=== PATIENT | male | born 1975 | race Caucasian/White ===

== ENCOUNTER 2016-10-19 08:00 | Inpatient (IN) | payer OTHER ==
[~2016-10-19] VITALS: Ht 182.9 cm; Wt 157.0 kg
--- NOTE | ~2016-10-19 | HP ---
PATIENT'S NAME: BEATA OG [facility] AGE: 41 Y [address] ROOM: [place] [address] LOCATION: [facility] ADMIT DATE: 11/02/2016 History & Physical DISCHARGE DATE: FAMILY PHYSICIAN: DIVINE VERONICA ATTENDING PHYSICIAN: MICHOACANO ENG DATE OF SERVICE: CHIEF COMPLAINT: Left knee pain. HISTORY OF PRESENT ILLNESS: The patient is a 41-year-old male, patient Dr. Michoacano Eng, who was admitted to the hospital today, 11/02/2016, for a left total knee arthroplasty for end- stage DJD. The patient will be followed by me for pain management and general medical care. I reviewed his preop evaluation with Dr. Michoacano Eng's notes. When I see him, he has no complaints of chest pain or shortness of breath. He has no nausea or vomiting. He says his pain control is adequate. CURRENT MEDICATIONS: Testosterone injections 200 mg IM per month. ALLERGIES: NO KNOWN DRUG ALLERGIES. PREVIOUS OPERATIONS: Status post T and A, back surgery with L4-L5 hemilaminectomy, appendectomy, knee surgery on the left, status post vasectomy. IMMUNIZATIONS: Up-to-date. SOCIAL HISTORY: Did smoke in the past, currently not smoking now. Denies drug or alcohol use. FAMILY HISTORY: Negative for problems with general anesthesia or bleeding disorder. REVIEW OF SYSTEMS: Positive for end-stage DJD, insomnia, back pain, sciatica, low testosterone level, and anxiety. Otherwise, see nurse's database form. PHYSICAL EXAMINATION: VITAL SIGNS: Blood pressure 153/78, pulse of 80, respirations 12, O2 normal PATIENT'S NAME: BEATA OG [facility] AGE: 41 Y [address] ROOM: [place] [address] LOCATION: [facility] ADMIT DATE: 11/02/2016 History & Physical DISCHARGE DATE: FAMILY PHYSICIAN: DIVINE VERONICA ATTENDING PHYSICIAN: MICHOACANO ENG on room air. He is afebrile. HEENT: Shows enlarging rings. Pupils react to light. He is wearing glasses. TMs not visualized. Posterior pharynx clear. NECK: Unremarkable. LUNGS: Clear. ABDOMEN: Benign. EXTREMITIES: Dressing, left knee. NEUROLOGIC: Cranial nerves intact. No lateralizing signs. Mental status normal postop. ASSESSMENT: 1. End-stage degenerative joint disease, left knee. 2. Status post left total knee arthroplasty today, operating surgeon Dr. Michoacano Eng. 3. Status post tonsillectomy and adenoidectomy. 4. Low testosterone level. 5. Status post back surgery with L4-L5 hemilaminectomy. 6. Status post appendectomy. 7. Status post vasectomy. 8. Status post prior knee surgery, see notes. PLAN: We will follow him as mentioned. LAZARO ALFARO MD PSYCHIATRIC TECHNICIAN/modl /[id number] D: [id number] T: [id number] HISTORY & PHYSICAL
--- NOTE | ~2016-10-19 | OR ---
PATIENT'S NAME: BEATA OG [facility] AGE: 41 Y [address] ROOM: [place] [address] LOCATION: [facility] ADMIT DATE: 11/02/2016 OR/Procedure Report DISCHARGE DATE: FAMILY PHYSICIAN: DIVINE VERONICA ATTENDING PHYSICIAN: MICHOACANO ENG SURGEON: Michoacano Eng MD RETAIL ASSISTANT MANAGER: Kilo Singh CST/MACHINE ASSEMBLER FOR PULLER OVER and Dr. Michoacano Lyod. DATE OF PROCEDURE: 11/02/2016 PRE-OP DIAGNOSIS: Degenerative joint disease of left knee. POST-OP DIAGNOSIS: Degenerative joint disease of left knee. OPERATION: Left total knee arthroplasty with computer navigation. ANESTHESIA: Spinal anesthesia plus adductor canal block plus periarticular local anesthesia (ropivacaine with epinephrine and Toradol). ESTIMATED BLOOD LOSS: Less than 10 mL. DRAIN: None. SPECIMEN: None. COMPLICATIONS: None. IMPLANT SYSTEM: [employer] Triathlon Size 6 left posterior stabilized femoral component Size 5 universal modular tibial base plate 13-mm posterior stabilized, size 5, X3 tibial polyethylene insert 32-mm oval X3 patellar component (triple pegged). INDICATIONS FOR SURGERY: Beata Og is a 41-year-old male, who presents with advanced left knee degenerative joint disease and associated severely compromised activities of daily living. The patient has decided to proceed with knee replacement after having been thoroughly counseled regarding the associated risks, benefits, and limitations. We have specifically reviewed the risks and implications of infection, deep venous thrombosis, pulmonary embolism, mortality, neurovascular complications, blood transfusion (and associated potential for disease transmission or transfusion reaction), stiffness, instability, mechanical deterioration of the components (due to wear and or loosening), and the potential need for revision. We have also emphasized the importance of active involvement and compliance with post- operative physical therapy as a means of optimizing range of motion and PATIENT'S NAME: BEATA OG [facility] AGE: 41 Y [address] ROOM: [place] [address] LOCATION: [facility] ADMIT DATE: 11/02/2016 OR/Procedure Report DISCHARGE DATE: FAMILY PHYSICIAN: DIVINE VERONICA ATTENDING PHYSICIAN: MICHOACANO ENG functional recovery. Informed consent has been granted. DESCRIPTION OF PROCEDURE: The patient was positioned supine after administration of anesthesia and prophylactic antibiotics. A well-padded pneumatic tourniquet was placed around the left proximal thigh, and the left lower extremity was prepped and draped with vigilant sterile technique. The patient's name as well as the intended operative side and procedure were confirmed with a verbal time-out involving myself, the circulating nurse, the scrub nurse, and the anesthesiologist. Examination under anesthesia demonstrated no active skin lesions or masses. There was a well-healed transverse arthrotomy scar at the medial joint line. There was a very long serpiginous curved linear anterolateral arthrotomy scar. This was utilized to approach the knee in lieu of a standard midline arthrotomy scar (due to the fact that the skin bridge between a midline arthrotomy scar and the pre-existing anterolateral scar would have been too narrow). There was a moderate effusion. There was no erythema. There was no abnormal warmth. There were multiple inferomedial and inferolateral arthroscopy portal scars. Range of motion under anesthesia was from 5 degrees of hyperextension to 130 degrees of flexion. There was no ligamentous insufficiency. The left lower extremity was elevated and exsanguinated with an Esmarch wrap, and the pneumatic tourniquet was inflated to 300 mmHg. The knee was approached through a longitudinal midline incision. A medial parapatellar arthrotomy was performed and the patella was everted. Examination of the joint space demonstrated a large amount of benign-appearing translucent synovial fluid. There were no loose bodies. There was no synovitis. Nonresorbable suture material was encountered in the medial retinaculum. Care was taken to raise the anterior skin flap in a full-thickness fashion, and minimize dissection any further medial than where the arthrotomy was performed. There was extensive fibrosis of the infrapatellar fat pad. There was deformity of the tibial tubercle and decreased mobility of the extensor mechanism consistent with the patient's previous tibial tubercle osteotomy. The previous anteromedialization of the tibial tubercle rendered exposure of the tibia significantly more complex and time consuming compared to a standard total knee arthroplasty. The cruciate ligaments were intact. There was a 1 x 2 cm region of full-thickness articular cartilage loss at the medial margin of the medial tibial plateau. There were intermixed grade 3 and grade 4 degenerative changes involving 75% of the medial femoral condyle. There were small osteophytes at the medial and lateral femoral condyles. There was a 1 x 1-1/2 cm region of full-thickness articular cartilage loss at the central aspect of the femoral trochlea. There was a 1-cm diameter region of full- thickness articular cartilage loss, with extensive surrounding full-thickness PATIENT'S NAME: BEATA OG [facility] AGE: 41 Y [address] ROOM: [address] [address] LOCATION: [facility] ADMIT DATE: 11/02/2016 OR/Procedure Report DISCHARGE DATE: FAMILY PHYSICIAN: DIVINE VERONICA ATTENDING PHYSICIAN: MICHOACANO ENG fissuring of the articular cartilage at the patella. There was a 1 x 2 cm diameter region of full-thickness articular cartilage loss at the lateral femoral condyle. There was a 1-cm diameter region of full-thickness articular cartilage loss at the posterior aspect of the lateral tibial plateau. There was complex degenerative tearing of the remnant of the medial meniscus. Remnants of the menisci and cruciate ligaments were excised. The [employer] computer navigation femoral tracker was pinned in place at the distal aspect of the femoral trochlea. Absence of motion between the femur and the tracking device was confirmed manually and visually. Femoral osseous landmarks were obtained in order to calibrate the computer navigation system. Landmarks included the center of rotation of the ipsilateral hip, the center-point of the distal femur, the femoral AP axis, 57 points on the medial femoral condyle articular surface, and 57 points on the lateral femoral condyle articular surface. The [employer] computer navigation system was subsequently utilized to position the distal femoral resection block such that the distal femoral resection was performed perfectly perpendicular to the femoral mechanical axis. The distal femoral resection was performed with a [employer] oscillating saw. The [employer] computer navigation tibial tracker was pinned in place at the anterior aspect of the tibial plateau. Absence of motion between the tibia and the tracking device was confirmed manually and visually. Tibial osseous landmarks were obtained in order to calibrate the computer navigation system. Landmarks included the center-point of the tibial plateau, the AP tibial axis, 57 points on the medial tibial plateau articular surface, 57 points on the lateral tibial plateau articular surface, the medial malleolus, and the lateral malleolus. The [employer] computer navigation system was subsequently utilized to position the proximal tibial resection block such that the proximal tibial resection was performed perfectly perpendicular to the tibial mechanical axis. The proximal tibial resection was performed with a [employer] oscillating saw. Perpendicularity of the tibial resection with respect to the tibial shaft axis was reconfirmed by inserting a spacer- block attached to an extramedullary guide eli. External rotation of the anterior and posterior femoral resections was set parallel to the epicondylar axis and carefully adjusted in order to create a rectangular flexion gap. The box resection was performed with a reciprocating saw. Anterior and posterior chamfer resections were performed with the oscillating saw. Posterior condyle osteophytes were excised with an osteotome. All other osteophytes were excised with a rongeur. Resection of all remnants of the menisci was reconfirmed. Flexion and extension gaps were confirmed to be symmetric and well balanced with a spacer-block technique. The patella resection was performed with an oscillating saw such that the PATIENT'S NAME: BEATA OG [facility] AGE: 41 Y [address] ROOM: [address] [address] LOCATION: [facility] ADMIT DATE: 11/02/2016 OR/Procedure Report DISCHARGE DATE: FAMILY PHYSICIAN: DIVINE VERONICA ATTENDING PHYSICIAN: MICHOACANO ENG composite thickness of the reconstructed patella was equivalent to the thickness of the [place] patella. Patella tracking was confirmed to be optimal. There was no need for a lateral retinacular release. All trial components were removed and all prepared osseous surfaces were thoroughly irrigated with pulsatile saline lavage and dried prior to cementing all three components in a single stage using [employer] Simplex cement containing pre-mixed tobramycin. All extruded excess cement was removed. The entire joint space was thoroughly inspected and thoroughly irrigated with bacteriostatic pulsatile saline lavage to assure that there was no residual debris of any sort. Final range of motion was from full extension (with no residual passive hyperextension) degrees of extension to 130 degrees of flexion. Patella tracking was reconfirmed to be optimal. There was excellent anteroposterior stability at 90 degrees of flexion. There was less than 1 mm of medial lift- off to valgus stress in full extension. There was less than 1 mm of lateral lift-off to varus stress in full extension. The arthrotomy was closed with multiple simple and [id number] interrupted #1 Vicryl. Subcutaneous tissues were thoroughly re-irrigated with bacteriostatic pulsatile saline lavage. Subcutaneous tissues were re- approximated with simple buried interrupted #0 Vicryl sutures. The skin was closed with simple buried interrupted 2-0 Vicryl sutures followed by surgical skylar. The dressing consisted of Xeroform gauze, 4x4 gauze, ABD pads and two 6-inch Jose Wraps. There were no intra-operative complications. MD ABHINAV VERMA/maggie /[id number] d: 11/02/162048 t: 11/03/162201, OPERATIVE SUMMARY
--- NOTE | ~2016-10-19 | DS ---
PATIENT'S NAME: BEATA OG [facility] AGE: 41 Y [address] ROOM: [place] [address] LOCATION: [facility] ADMIT DATE: 11/02/2016 Discharge Summary DISCHARGE DATE: 11/04/2016 FAMILY PHYSICIAN: DIVINE VERONICA ATTENDING PHYSICIAN: Pastor Srinivasan PRIMARY DIAGNOSIS: Degenerative joint disease of the left knee. SECONDARY DIAGNOSES: 1. Low testosterone. 2. Insomnia. 3. Anxiety. 4. History of leg radiculopathy. PROCEDURE PERFORMED: Left total knee arthroplasty with computer navigation. HISTORY: The patient is a 41-year-old male, who presents with advanced left knee degenerative joint disease and associated severely compromised activities of daily living. The patient has decided to proceed with total knee arthroplasty after having been thoroughly counseled regarding the risks, benefits, limitations and alternatives. Please refer to the outpatient clinic notes and admission history and physical for this patient. HOSPITAL COURSE: The patient underwent a left total knee arthroplasty on 11/02/2016 without complications. Spinal anesthesia plus adductor canal block plus periarticular local anesthesia was utilized. The patient received 24 hours of perioperative prophylactic antibiotics and remained hemodynamically stable, neurovascularly intact throughout the entire hospital course. The postoperative prophylactic deep venous thrombosis prophylaxis consisted of Xarelto, early mobilization and pneumatic compression devices. Daily physical therapy for gait training, transfer training range of motion and quadriceps isometric exercises were received. The patient progressed well in physical therapy. On the date of discharge, 11/04/2016, the incision at the knee was healing well and showed no signs of infection. DISPOSITION: Home. DISCHARGE ACTIVITY: The patient is to bear weight as tolerated with range of motion and quadriceps isometric exercises as instructed. The operative extremity is to be elevated at least 90% of the day. There is to be sterile 4x4 gauze dressings to the incision daily. Dr. Srinivasan is to be notified immediately if there is any increased pain, fevers, chills erythema or drainage. Please keep Ojse wraps on until 11/06/2016. Hold range of motion until followup appointment. PATIENT'S NAME: BEATA OG [facility] AGE: 41 Y [address] ROOM: [place] [address] LOCATION: [facility] ADMIT DATE: 11/02/2016 Discharge Summary DISCHARGE DATE: 11/04/2016 FAMILY PHYSICIAN: DIVINE VERONICA ATTENDING PHYSICIAN: Pastor Srinivasan DISCHARGE MEDICATIONS: 1. Xarelto 10 mg, take 1 tablet p.o. daily for DVT prevention. 2. Valium 5 mg, take 1-2 tablets p.o. every 6 hours as needed for muscle spasms. 3. Dilaudid 4 mg, take 1-2 tablets p.o. every 4 hours as needed for pain. FOLLOWUP: Followup appointment is to be with Dr. Srinivasan on November 09, 2016 for initial postop evaluation. KULDEEP SOLITARIO FOR MD PATRICK VERMAB/modl /[id number] d: 11/16/16 0349 t: 11/23/16 0809, DISCHARGE SUMMARY
[2016-10-19] MEDS ORDERED: TESTOSTERO200 MG/11 IM (12:40)
[2016-10-19] MEDS ORDERED: ADVIL200 MG PO (12:41)
[2016-10-19] MEDS ORDERED: ULTRAM50 MG PO (12:41)
[2016-11-02] MEDS ORDERED: ZANTAC (NON-FO150 MG PO (07:33)
--- NOTE | 2016-11-02 14:12 | NUR ---
1400 REPORT VIA TELEPHONE TO JOI HASSAN. 1407 TO FLOOR PER CART WITH TRANSPORT TEAM. PARDEEP NOTIFIED IN WAITING ROOM
--- NOTE | 2016-11-02 17:07 | NUR ---
D: Received from PACU at 1415. Second hourly at 1900. Dilaudid 2mg and Tylenol 1000mg given at 1645. Spinal sensation at knee. Bladder scan was greater than 999ml. 1630 straight cath for 1000ml. Dressing is dry/intact. Taking PO without difficulty.
--- NOTE | 2016-11-02 18:53 | NUR ---
I reviewed and approve charting by Raheem Zhao RN
--- NOTE | 2016-11-03 04:37 | NUR ---
Significant Event: Patient alert and oriented. Normal sensation to left leg. VSS on room air. Dilaudid FACETOR initiated at 2330. Voids without difficulity. Pleasant and cooperative with cares. Follow up: continue to monitor
--- NOTE | 2016-11-03 09:35 | NUR ---
Introduced self/role to patient. He lives in [place], has a significant other Ese. They have a built in shower, walker and cane. He denied any barriers to going home or at home. He plans to go home tomorrow. Added my name to his marker board. will continue to follow.
--- NOTE | 2016-11-03 17:31 | NUR ---
D: HOSPITAL ACCOUNT MANAGER stopped 1530. Dilaudid 4mg at 1533. Toradol 30mg at 1417. Valium 5mg 1212. Patient has tolerated PO well. CSM within normal limits. Dressing dry and intact. Ambulates with walker and 1A. Voiding without difficulty.
--- NOTE | 2016-11-03 18:00 | NUR ---
I reviewed and approved charting by SN Pal
--- NOTE | 2016-11-04 03:34 | NUR ---
Significant Event: Heart rate tachycardic in 100's-110's. Dressing is CDI. CSM WNL except for numbness to medial alvarez. Up to bathroom with SBA, gait belt and walker. IV SL'd to L) FA. Rates pain 5-7/10. Dilaudid IVP given x3 last at 0034. Dilaudid 4 mg tab given last at 0210. Toradol (4th dose) given at 0239. Valium 10 mg given last at 0240. Plans to discharge home today. Ice to knee adn thigh. Follow up:
[2016-11-04] MEDS ORDERED: TYLENOL EXTRA500 MG PO (12:04)
[2016-11-04] MEDS ORDERED: NEURONTIN300 MG PO (12:05)
[2016-11-04] MEDS ORDERED: COLACE100 MG PO (12:05)
[2016-11-04] MEDS ORDERED: MIRALAX17 GM PO (12:06)
[2016-11-04] MEDS ORDERED: XARELTO10 MG PO (12:07)
[2016-11-04] MEDS ORDERED: VALIUM5 MG PO (12:08)
[2016-11-04] MEDS ORDERED: DILAUDID 4MG4 MG PO (12:09)
[2016-11-04] MEDS ORDERED: CELEBREX200 MG PO (12:10)
--- NOTE | 2016-11-04 15:26 | NUR ---
Reviewed discharge instructions with patient and his . Reviewed card of dressing, s/s infection, when to call the dr, ice/elevate, prevention/s/s DVT, all medications, etc. Refer to discharge instructions for details. All belongings sent with patient. Encouraged to call dr with any questions/concerns after discharge. To front door per w/c.
== END 2016-11-04 15:15 | disposition disaster alternative care site (69) | DRG 470 ==
LOC: G3N 11-02 07:00
PROVIDERS: ADMIT Orthopaedic Surgery
PROC: 0SRD0J9 Replacement of Left Knee Joint with Synthetic Substitute, Cemented, Open Approach (ICD-10-PCS; principal; 2016-11-02)
DX: M17.12 Unilateral primary osteoarthritis, left knee (principal); F41.9 Anxiety disorder, unspecified; Z87.891 Personal history of nicotine dependence; G47.00 Insomnia, unspecified; M54.30 Sciatica, unspecified side
CPT/HCPCS: C1713; C1776; J0690; J1100; J1170; J1885; J2001; J2250; J2795; J7120; P9045

== ENCOUNTER → 2016-10-28 | Outpatient (CLI) | payer OTHER ==
[~2016-10-28] MED LIST: ADVIL200 MG PO; CELEBREX200 MG PO; COLACE100 MG PO; DILAUDID 4MG4 MG PO; MIRALAX17 GM PO; NEURONTIN300 MG PO; TESTOSTERO200 MG/11 IM; TYLENOL EXTRA500 MG PO; ULTRAM50 MG PO; VALIUM5 MG PO; XARELTO10 MG PO; ZANTAC (NON-FO150 MG PO
[2016-10-28 11:52] LABS: BILIRUBIN URINE NEGATIVE (NEGATIVE); BLOOD URINE 25 /UL (NEGATIVE); GLUCOSE URINE NEGATIVE (NEGATIVE); KETONE URINE NEGATIVE (NEGATIVE); LEUKOCYTES URINE 25 /UL (NEGATIVE); NITRITE URINE NEGATIVE (NEGATIVE); PROTEIN URINE 15 mg/dL (NEGATIVE); UROBILINOGEN URINE NORMAL (NORMAL)
[2016-10-28 11:58] LABS: COLOR URINE YELLOW (YELLOW); TURBIDITY URINE CLEAR (CLEAR)
[2016-10-28 12:04] LABS: BACTERIA URINE RARE (NEGATIVE); EPITHELIAL URINE RARE #/HPF (NEGATIVE); WBC URINE 0-2 #/HPF (NEGATIVE)
== END | disposition disaster alternative care site (69) ==
LOC: GNJRC 10-21 11:00
PROVIDERS: Orthopaedic Surgery
DX: Z01.812 Encounter for preprocedural laboratory examination (principal); M17.12 Unilateral primary osteoarthritis, left knee